=== PATIENT | male | born 1990 | race African-American/Black ===

== ENCOUNTER 2019-10-22 18:23 | Emergency (ER) | payer SELFPAY ==
[~2019-10-22] VITALS: Ht 170.2 cm; Wt 85.0 kg
[2019-10-22] MEDS ORDERED: DEXAMETHASONE 4MG TABLET PO ONE (21:00)
[2019-10-22] MEDS ORDERED: ACETAMINOPHEN 500MG TABLET PO ONE (21:00)
[2019-10-22] MEDS ORDERED: ACETAMINOPHEN WITH CODEINE 300/30MG TABLET PO ONE (22:15)
[2019-10-22 22:56] VITALS: BP 149/71
== END 2019-10-22 22:57 | disposition home or self-care (01) ==
LOC: ER 18:27
DX: M54.5 Low back pain (principal); M54.32 Sciatica, left side; D64.9 Anemia, unspecified; J45.909 Unspecified asthma, uncomplicated; D57.1 Sickle-cell disease without crisis; M41.9 Scoliosis, unspecified
CPT/HCPCS: 72100; 99284; J8540